=== PATIENT | female | born 1975 | race Caucasian/White ===

== ENCOUNTER → 2020-05-24 | Outpatient (CLI) | payer OTHER ==
[~2020-05-24] MED LIST: PROHANCE 279.3MG/ML 15ML VIAL As Ordered ONE; PROHANCE 279.3MG/ML 5ML VIAL As Ordered ONE
--- NOTE | 2020-05-24 19:19 | REPVR ---
PROCEDURE INFORMATION: Exam: MR Head Without Contrast Exam date and time: 05/24/2020 6:05 PM Age: 45 years old Clinical indication: Other: Vertigo; Additional info: Intractable migraine w/aura w/out status migrainosus TECHNIQUE: Imaging protocol: MR of the head without contrast. COMPARISON: No relevant prior studies available. FINDINGS: Major vascular flow voids at the skull base are preserved. No extra-axial fluid collection. No midline shift or intracranial mass effect. There is [id number] nonspecific white matter gliosis. No cerebral edema or pathologic susceptibility. No diffusion restriction. Visualized paranasal sinuses and mastoid air cells are clear. IMPRESSION: 1. No acute intracranial abnormality. 2. [id number] white matter gliosis with nonspecific distribution. Consider microvascular angiopathy including migrainous angiopathy. Atypical pattern for demyelination. Electronically signed by: Saqib Rodriguez On 05/24/2020 19:19:14 PM
--- NOTE | 2020-05-24 19:19 | REPVR ---
PROCEDURE INFORMATION: Exam: MR Angiography Neck Without and With Contrast Exam date and time: 05/24/2020 6:05 PM Age: 45 years old Clinical indication: Vertigo; Additional info: Vertigo, near syncope TECHNIQUE: Imaging protocol: Magnetic resonance angiography of the neck without and with intravenous contrast. 3D rendering (Not supervised by radiologist): MIP and/or 3D reconstructed images were created by the technologist. Contrast material: PROHANCE; Contrast volume: 25 ml; Contrast route: INTRAVENOUS (IV); COMPARISON: No relevant prior studies available. FINDINGS: Right common carotid artery: No stenosis. No dissection or occlusion. Right internal carotid artery: No stenosis of the extracranial segment. No dissection or occlusion. Right external carotid artery: No stenosis. No dissection or occlusion of the origin. Right vertebral artery: Right vertebral artery is dominant. Left common carotid artery: No stenosis. No dissection or occlusion. Left internal carotid artery: No stenosis of the extracranial segment. No dissection or occlusion. Left external carotid artery: No stenosis. No dissection or occlusion of the origin. Left vertebral artery: No stenosis. No dissection or occlusion. IMPRESSION: No stenosis or dissection. REFERENCES: NASCET CRITERIA. The degree of internal carotid artery stenosis is based on NASCET criteria. Normal is no stenosis. Mild is less than 50% stenosis. Moderate is 50-69% stenosis. Severe is 70% to 99% stenosis. Total occlusion is no detectable patent lumen. Electronically signed by: Saqib Rodriguez On 05/24/2020 19:18:46 PM
--- NOTE | 2020-05-24 19:19 | REPVR ---
PROCEDURE INFORMATION: Exam: MR Cervical Spine Without Contrast Exam date and time: 05/24/2020 6:05 PM Age: 45 years old Clinical indication: Other: Vertigo; Additional info: Bilateral cervical neuralgia, cervicalgia TECHNIQUE: Imaging protocol: Multiplanar magnetic resonance images of the cervical spine without contrast. COMPARISON: No relevant prior studies available. FINDINGS: Patient motion. Vertebral body height and AP alignment is preserved. Negative for discitis/osteomyelitis. No abnormal cord signal or cord expansion. No epidural fluid collection. No focal herniation, central canal stenosis or significant foraminal narrowing throughout the cervical spine. IMPRESSION: 1. Patient motion without definite acute abnormality. 2. Widely patent central canal. Electronically signed by: Saqib Rodriguez On 05/24/2020 19:19:29 PM
== END ==
LOC: M RAD 16:33
PROVIDERS: ATTEND Nurse Practitioner Family
DX: R42 Dizziness and giddiness (principal); R55 Syncope and collapse; M54.81 Occipital neuralgia; M54.2 Cervicalgia; G43.119 Migraine with aura, intractable, without status migrainosus; R90.82 White matter disease, unspecified
CPT/HCPCS: 70549; 70551; 72141; A9576